=== PATIENT | male | born 1990 | race Two or more races ===

== ENCOUNTER 2016-07-10 17:37 | Emergency (ER) | payer MEDICAID ==
[~2016-07-10] VITALS: Ht 180.3 cm; Wt 127.0 kg
[2016-07-10 19:33] VITALS: BP 127/80
[2016-07-10] MEDS ORDERED: ONDANSETRON ODT 4 MG TAB PO ONE (20:00)
== END 2016-07-10 20:33 | disposition home or self-care (01) ==
LOC: ER 18:08
DX: K52.9 Noninfective gastroenteritis and colitis, unspecified (principal)
CPT/HCPCS: 99283; Q0162